=== PATIENT | female | born 1975 | race African-American/Black ===

== ENCOUNTER 2016-07-31 21:42 | Emergency (ER) | payer MEDICAID ==
[~2016-07-31] VITALS: Ht 157.5 cm; Wt 88.0 kg
--- NOTE | 2016-07-31 21:42 | NUR ---
Patient to [facility] for evaluation.
[2016-07-31 21:45] VITALS: BP 125/70; PULSE 75; RESP 16; TEMP 97.4; O2SAT 98
--- NOTE | 2016-07-31 21:45 | NUR ---
Pt bib law enforcement, [facility] for medical evaluation before booking. Pt violated her parole, had no medical complaints. Pt denied any pain, reported non compliance with Psych meds x few days. Pt denied any hallucinations, suicidal ideation. Pt with normal resp effort, vital signs within normal limit.
--- NOTE | 2016-07-31 21:55 | NUR ---
MAN[facility] Fernandes examining patient.
[2016-07-31] MEDS ORDERED: DIPHENHYDRAMINE HCL 50 MG CAPSULE PO ONE (22:15)
[2016-07-31] MEDS ORDERED: risperiDONE 1 MG TABLET (RisperDAL) PO ONE (22:15)
[2016-07-31] MEDS ORDERED: risperiDONE 1 MG TABLET (RisperDAL) ONE (22:42)
[2016-07-31 22:57] VITALS: BP 124/76; PULSE 78; RESP 17; TEMP 97.8; O2SAT 98
--- NOTE | 2016-07-31 22:57 | NUR ---
Patient given written and verbal discharge instructions and verbalizes understanding. ER [employer] Britta Fernandes discussed with patient the results and treatment provided. Patient in stable condition. ID arm band removed. No Rx given. Pain Scale 0/10. Opportunity for questions provided and answered by PHILLIP Fernandes. Pt was medically cleared and brought to [facility] by law enforcement officers
== END 2016-07-31 22:57 ==
LOC: SED 21:42
DX: Z02.89 Encounter for other administrative examinations (principal); F31.9 Bipolar disorder, unspecified; F20.9 Schizophrenia, unspecified; Z98.890 Other specified postprocedural states
CPT/HCPCS: 99283; Q0163